=== PATIENT | male | born 1940 | race Caucasian/White ===

== ENCOUNTER 2018-03-01 09:54 | Inpatient (IN) | payer BC, MEDICARE, OTHER ==
[~2018-03-01 09:54] MED LIST: ROCURONIUM 50 MG INJ
[2018-03-01] MEDS ORDERED: SODIUM CL BACTERIOSTATIC 30 ML INJ (12:19)
[2018-03-01] MEDS ORDERED: GELATIN SIZE 100 SPONGE (12:19)
[2018-03-01] MEDS ORDERED: PROPOFOL 20 ML (12:21)
[2018-03-01] MEDS ORDERED: SUCCINYLCHOLINE CHLORIDE 100 MG/5 ML SYG IV (12:21)
[2018-03-01] MEDS ORDERED: LIDOCAINE 2% (SDV) 5 ML INJ (12:22)
[2018-03-01] MEDS ORDERED: MEPERIDINE 100 MG INJ (12:22)
[2018-03-01] MEDS ORDERED: NEOSTIGMINE 3 MG/3 ML SYRINGE (12:22)
[2018-03-01] MEDS ORDERED: ROCURONIUM 50 MG INJ (12:22)
[2018-03-01] MEDS ORDERED: GLYCOPYRROLATE 0.4 MG INJ (12:22)
[2018-03-01] MEDS ORDERED: DIPHENHYDRAMINE 50 MG INJ IV ×2 (12:30→14:30)
[2018-03-01] MEDS ORDERED: AL HYDROX/MG HYDROX/SIMETH 30 ML CUP PO (12:30)
[2018-03-01] MEDS ORDERED: ACETAMINOPHEN 325 MG TAB PO (12:30)
[2018-03-01] MEDS ORDERED: CEPASTAT LOZENGE MT (12:30)
[2018-03-01] MEDS ORDERED: BISACODYL 10 MG SUPP PR (12:30)
[2018-03-01] MEDS ORDERED: ZOLPIDEM 5 MG TAB PO (12:30)
[2018-03-01] MEDS ORDERED: HYDROmorphONE 0.5 MG/0.5 ML SYG IV (12:30)
[2018-03-01] MEDS ORDERED: CYCLOBENZAPRINE 10 MG TAB PO (12:30)
[2018-03-01] MEDS ORDERED: NALOXONE (0.4 MG/ML) INJ IV (12:30)
[2018-03-01] MEDS ORDERED: ONDANSETRON 4 MG INJ IV (12:30)
[2018-03-01] MEDS: CEFAZOLIN 1 GM/50 ML (PMX) 50 ML IVPB ×2 (12:30→20:26)
[2018-03-01] MEDS ORDERED: CEFAZOLIN 1 GM INJ (13:03)
[2018-03-01] MEDS ORDERED: HEPARIN 1000 UNITS/ML 10 ML INJ (13:15)
[2018-03-01] MEDS: POLYMYXIN/BACITRACIN 1L IRRIG (14:10)
[2018-03-01] MEDS: BUPIVACAINE 0.25%/EPI (SDV) 10 ML INJ (14:10)
[2018-03-01] MEDS: CA CHLORIDE 10% 10 ML SYRINGE ×2 (14:11→14:12)
[2018-03-01] MEDS: THROMBIN 20,000 UNIT VIAL ZFS (14:12)
[2018-03-01] MEDS: SURGIFOAM POWDER 1 GM KIT (14:13)
[2018-03-01] MEDS ORDERED: LABETALOL HCL 20MG INJ IV (14:30)
[2018-03-01] MEDS ORDERED: MIDAZOLAM 1 MG/ML 2 ML INJ IV (14:30)
[2018-03-01] MEDS ORDERED: HYDROmorphONE 1 MG/5 ML IV SYRINGE IV ×3 (14:30)
[2018-03-01] MEDS ORDERED: EPHEDrine SULFATE 50 MG/5 ML SYG IV (14:30)
[2018-03-01] MEDS ORDERED: hydrALAzine 20 MG INJ IV (14:30)
[2018-03-01] MEDS ORDERED: FENTAnyl 50 MCG/ML VIAL IV ×2 (14:30)
[2018-03-01] MEDS ORDERED: METOCLOPRAMIDE 10 MG INJ IV (14:30)
[2018-03-01] MEDS ORDERED: OXYCODONE/ACETAMINOPHEN (5/325) TAB PO ×2 (14:30)
[2018-03-01] MEDS ORDERED: ONDANSETRON 4 MG INJ (15:27)
[2018-03-01] MEDS: FENTAnyl 50 MCG/ML VIAL IV ×2 (16:04→16:11)
[2018-03-01] MEDS: HYDROmorphONE 0.2 MG/ML PCA IV (16:06)
[2018-03-01] MEDS: MEPERIDINE 25 MG INJ IV (16:08)
[2018-03-01] MEDS: ONDANSETRON 4 MG INJ IV (16:08)
[2018-03-01] MEDS: ACCU-CHEK XX ×3 (17:25→20:29)
[2018-03-01] MEDS: INSULIN ASPART [NOVOLOG] 3 ML PEN SC ×2 (17:49→20:34)
[2018-03-01] MEDS: D5W-0.45 NACL + KCL 20 MEQ 1,000 ML IV ×2 (17:57→21:57)
[2018-03-01] MEDS: LINAGLIPTIN 5 MG TABLET PO (17:57)
[2018-03-01] MEDS ORDERED: DEXTROSE 50% 50 ML SYRINGE IV ×2 (18:00)
[2018-03-01] MEDS ORDERED: GLUCOSE GEL 15 GRAM TUBE PO ×2 (18:00)
[2018-03-01] MEDS ORDERED: GLUCOSE GEL 15 GRAM TUBE BUCCAL (18:00)
[2018-03-01] MEDS ORDERED: GLUCAGON 1 MG INJ IM (18:00)
[2018-03-01] MEDS: LANSOPRAZOLE 30 MG CAP PO (20:27)
[2018-03-01] MEDS: ATORVASTATIN 40 MG TAB PO (20:27)
[2018-03-01] MEDS: DOCUSATE SODIUM 100 MG CAP PO (20:27)
[2018-03-01 21:05] LABS: HEMOGLOBIN A1C 5.5 % (0-5.9)
[2018-03-02] MEDS: ACCU-CHEK XX ×5 (02:00→13:40)
[2018-03-02] MEDS: D5W-0.45 NACL + KCL 20 MEQ 1,000 ML IV (03:52)
[2018-03-02] MEDS: CEFAZOLIN 1 GM/50 ML (PMX) 50 ML IVPB (03:55)
[2018-03-02 05:21] LABS: ADD MAN DIFF? NO
[2018-03-02 05:26] LABS: BASOPHILS % 0.3 % (0.0-2.0); EOSINOPHILS # 0.1 10^3/ul (0.0-0.5); EOSINOPHILS % 1.6 % (0.0-7.0); HEMATOCRIT 33.2 % (42.0-52.0); HEMOGLOBIN 11.2 g/dl (14.0-18.0); LYMPHOCYTES # 1.3 10^3/ul (0.8-2.9); LYMPHOCYTES % 18.2 % (15.0-51.0); MEAN CORPUSCULAR HEMOGLOBIN 32.1 pg (29.0-33.0); MEAN CORPUSCULAR HGB CONC 33.7 g/dl (32.0-37.0); MEAN CORPUSCULAR VOLUME 95.1 fl (82.0-101.0); MEAN PLATELET VOLUME 10.1 fl (7.4-10.4); MONOCYTE # 0.6 10^3/ul (0.3-0.9); MONOCYTES % 8.2 % (0.0-11.0); NEUTROPHIL # 4.9 10^3/ul (1.6-7.5); NEUTROPHILS % 71.1 % (39.0-77.0); PLATELET COUNT 203 10^3/UL (140-415); RED BLOOD COUNT 3.49 10^6/ul (4.70-6.10)
[2018-03-02 05:26] LABS: WHITE BLOOD COUNT 6.9 10^3/ul (4.8-10.8)
[2018-03-02] MEDS: PANTOPRAZOLE 40 MG INJ IV (05:38)
[2018-03-02 06:03] LABS: ANION GAP 6 (5-13); BLOOD UREA NITROGEN 12 mg/dl (7-20); CALCIUM 8.1 mg/dl (8.4-10.2); CARBON DIOXIDE 30 mmol/L (21-31); CHLORIDE 103 mmol/L (97-110); CREATININE 0.79 mg/dl (0.61-1.24); GLUCOSE 116 mg/dl (70-220); POTASSIUM 4.1 mmol/L (3.5-5.1); SODIUM 139 mmol/L (135-144)
[2018-03-02] MEDS: INSULIN ASPART [NOVOLOG] 3 ML PEN SC ×2 (07:50→11:40)
[2018-03-02] MEDS: DOCUSATE SODIUM 100 MG CAP PO (08:34)
[2018-03-02] MEDS: LANSOPRAZOLE 30 MG CAP PO (08:34)
[2018-03-02] MEDS: LINAGLIPTIN 5 MG TABLET PO (08:35)
[2018-03-02] MEDS ORDERED: MERCAPTOPURINE 50 MG PO (09:00)
[2018-03-02] MEDS: HYDROCODONE/APAP (10/325) TAB PO ×2 (09:28→13:40)
[2018-03-02] MEDS ORDERED: HYDROCODONE/APAP (10/325) TAB PO (10:00)
[2018-03-03] MEDS ORDERED: PANTOPRAZOLE (EC) 40 MG TAB PO (06:00)
== END 2018-03-02 17:40 | disposition home or self-care (01) | DRG 519 ==
LOC: REC 09:54 → MS1 16:50
PROVIDERS: Specialist
PROC: 0SB20ZZ Excision of Lumbar Vertebral Disc, Open Approach (ICD-10-PCS; principal; 2018-03-01 12:00)
PROC: 01NB0ZZ Release Lumbar Nerve, Open Approach (ICD-10-PCS; 2018-03-01 12:00)
DX: M51.16 Intervertebral disc disorders with radiculopathy, lumbar region (principal); K51.90 Ulcerative colitis, unspecified, without complications; M48.061 Spinal stenosis, lumbar region without neurogenic claudication; M21.372 Foot drop, left foot; E11.69 Type 2 diabetes mellitus with other specified complication; E78.2 Mixed hyperlipidemia; G47.33 Obstructive sleep apnea (adult) (pediatric)
CPT/HCPCS: 72020; 80048; 82962; 83036; 83735; 85025; 86999; 88304; 97116; 97161; 97530